=== PATIENT | male | born 1990 | race Caucasian/White ===

== ENCOUNTER 2017-12-16 05:37 | Emergency (ER) | payer BC, OTHER ==
[2017-12-16 05:47] VITALS: TEMP 96.4
[2017-12-16] MEDS ORDERED: IBUPROFEN 600 MG TAB PO STA (07:06)
--- NOTE | 2017-12-16 07:14 | ED ---
Fall HPI - General Source: patient Mode of arrival: EMS - History of Present Illness MD Complaint: fall Onset/Timin -: hour(s) Fall From: down stairs (#) (5) When Fall Occurred: 1 hour [employer] Fall Witnessed: no Place Fall Occurred: other (Outdoor) Loss of Consciousness: unsure Prolonged Down Time?: no Location: head Severity: moderate Quality: aching Context: tripped/slipped Associated Symptoms: headache, neck pain <Jayro Guthrie - Last Filed: 12/16/17 07:29> <Javan Bowman - Last Filed: 12/16/17 08:22> - General Chief Complaint: Fall Stated Complaint: Fall, poss concussion Time Seen by Provider: 12/16/17 05:57 - Related Data Allergies Allergy/AdvReac Type Severity Reaction Status Date / Time No Known Allergies Allergy Verified 12/16/17 05:47 Review of Systems ROS Other: All systems not noted in ROS Statement are negative. Constitutional: Denies: fever, chills, weakness Eyes: Denies: vision change Respiratory: Denies: cough, dyspnea Cardiovascular: Denies: chest pain, palpitations Gastrointestinal: Denies: abdominal pain, nausea, vomiting Musculoskeletal: Denies: back pain Skin: Denies: rash Neurological: Reports: headache. Denies: weakness, numbness, paresthesias <ClevelandJayro - Last Filed: 12/16/17 07:29> ROS Other: All systems not noted in ROS Statement are negative. <Javan Bowman - Last Filed: 12/16/17 08:22> ROS Statement: Those systems with pertinent positive or pertinent negative responses have been documented in the HPI. Past Medical History Past Medical History: No Reported History History of Any Multi-Drug Resistant Organisms: MRSA Date of last positivie culture/infection: 2009 Additional Past Surgical History / Comment(s): bladder surgery Past Psychological History: ADD/ADHD, Anxiety Smoking Status: Light tobacco smoker Past Alcohol Use History: Rare Past Drug Use History: None Reported <Jayro Guthrie - Last Filed: 12/16/17 07:29> General Exam Limitations: no limitations General appearance: alert, in no apparent distress Head exam: Present: atraumatic, normocephalic, normal inspection Eye exam: Present: normal appearance, PERRL, EOMI. Absent: scleral icterus, conjunctival injection ENT exam: Present: normal oropharynx Neck exam: Present: normal inspection. Absent: tenderness, full ROM (Cervical collar) Respiratory exam: Present: normal lung sounds bilaterally. Absent: respiratory distress, wheezes, rales, rhonchi, stridor Cardiovascular Exam: Present: regular rate, normal rhythm, normal heart sounds GI/Abdominal exam: Present: soft. Absent: distended, tenderness, guarding, rebound Extremities exam: Present: normal inspection, normal capillary refill. Absent: pedal edema, calf tenderness Back exam: Present: normal inspection. Absent: CVA tenderness (R), CVA tenderness (L), vertebral tenderness Neurological exam: Present: alert, oriented X3, CN II-XII intact Skin exam: Present: warm, dry, intact, normal color <Jayro Guthrie - Last Filed: 12/16/17 07:29> Vital Signs 12/16/17 05:43 Temperature 96.4 F L Pulse Rate 60 Respiratory 17 Rate Blood Pressure 104/77 O2 Sat by Pulse 97 Oximetry Medical Decision Making <Jayro Guthrie - Last Filed: 12/16/17 07:29> - Radiology Data Radiology results: report reviewed, image reviewed (I did review the imaging and report no acute findings.) <Javan Bowman - Last Filed: 12/16/17 08:22> - Medical Decision Making Patient was endorsed me at shift change by Dr. Guthrie. This is pending CAT scan results. CT of the head neck are negative for acute findings. Patient be discharged with head injury instructions he is follow-up with his doctor and return when necessary (Javan Bowman) Disposition <Jayro Guthrie - Last Filed: 12/16/17 07:29> Is patient prescribed a controlled substance at d/c from ED?: No <Javan Bowman - Last Filed: 12/16/17 08:22> Clinical Impression: Fall, Head injury Disposition: HOME SELF-CARE Condition: Good Instructions: Head Injury (ED) Referrals: Sam Quiles MD [Primary Care Provider] - 1-2 days
--- NOTE | 2017-12-16 08:17 | CT ---
EXAM: CT Head Without Intravenous Contrast CLINICAL HISTORY: Fall, possible concussion TECHNIQUE: Axial computed tomography images of the head/brain without intravenous contrast. CTDI is 59.43 mGy and DLP is 1135.10 mGy-cm. This CT exam was performed using one or more of the following dose reduction techniques: automated exposure control, adjustment of the mA and/or kV according to patient size, and/or use of iterative reconstruction technique. COMPARISON: No previous examination available. FINDINGS: Brain: Unremarkable. No hemorrhage. No significant white matter disease. No edema. Ventricles: Unremarkable. No ventriculomegaly. Bones/joints: Unremarkable. No acute fracture. Soft tissues: Unremarkable. Sinuses: Unremarkable as visualized. No acute sinusitis. Mastoid air cells: Unremarkable as visualized. No mastoid effusion. IMPRESSION: No acute intracranial process identified. EXAM: CT Cervical Spine Without Intravenous Contrast CLINICAL HISTORY: Fall, possible concussion TECHNIQUE: Axial computed tomography images of the cervical spine without intravenous contrast. CTDI is 13.94 mGy and DLP is 272.59 mGy-cm. This CT exam was performed using one or more of the following dose reduction techniques: automated exposure control, adjustment of the mA and/or kV according to patient size, and/or use of iterative reconstruction technique. COMPARISON: No previous examination available. FINDINGS: Vertebrae: Unremarkable. No acute fracture. Discs/spinal canal/neural foramina: No acute findings. No spinal canal stenosis. Soft tissues: Unremarkable. Lung apices: Unremarkable as visualized. IMPRESSION: No acute traumatic injury or significant abnormal alignment involving the cervical spine.
[2017-12-16 08:32] VITALS: BP 111/60; PULSE 72; RESP 16
== END 2017-12-16 08:28 | disposition home or self-care (01) ==
LOC: EC 05:37
DX: S09.90XA Unspecified injury of head, initial encounter (principal); M54.2 Cervicalgia; F17.200 Nicotine dependence, unspecified, uncomplicated; Z86.14 Personal history of Methicillin resistant Staphylococcus aureus infection; W10.9XXA Fall (on) (from) unspecified stairs and steps, initial encounter; Y92.89 Other specified places as the place of occurrence of the external cause
CPT/HCPCS: 70450; 72125; 99284

== ENCOUNTER 2018-02-09 04:52 | Emergency (ER) | payer OTHER ==
[2018-02-09 04:59] VITALS: RESP 18
[2018-02-09] MEDS ORDERED: DIPH,PERTUS(ACELL)TETVAC-LF 0.5 ML VIAL IM ONE (05:04)
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
[2018-02-09 05:15] LABS: Glucose,Whole Blood 82 mg/dL (75-99)
[2018-02-09 05:25] LABS: HCT 46.6 % (39.0-53.0); HGB 15.1 gm/dL (13.0-17.5); MCHC 32.3 g/dL (31.0-37.0); MCV 102.1 fL (80.0-100.0); Macrocytosis Slight; Mean Platelet Volume 6.5; Platelet Count 246 k/uL (150-450); RBC 4.57 m/uL (4.30-5.90); RDW 12.6 % (11.5-15.5); WBC 6.8 k/uL (3.8-10.6)
[2018-02-09 05:26] VITALS: BP 139/93; PULSE 81; TEMP 98.5
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
[2018-02-09 05:39] LABS: Prothrombin Time 9.9 sec (9.0-12.0)
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
[2018-02-09 05:46] LABS: ALT 38 U/L (21-72); AST 39 U/L (17-59); Albumin 3.7 g/dL (3.5-5.0); Alcohol <10 mg/dL; Alkaline Phosphatase 36 U/L (38-126); Amylase 66 U/L (30-110); Anion Gap 5 mmol/L; Blood Urea Nitrogen 14 mg/dL (9-20); Calcium 8.8 mg/dL (8.4-10.2); Carbon Dioxide 30 mmol/L (22-30); Chloride 105 mmol/L (98-107); Glucose 70 mg/dL (74-99); Lipase 270 U/L (23-300); Potassium 3.8 mmol/L (3.5-5.1); Sodium 140 mmol/L (137-145); Total Bilirubin 0.3 mg/dL (0.2-1.3); Total Protein 5.6 g/dL (6.3-8.2)
[2018-02-09 05:48] LABS: Creatine Kinase 403 U/L (55-170)
[2018-02-09 05:52] LABS: Lymphocytes # (M) 4.28 k/uL (1.0-4.8); Monocytes # (M) 0.61 k/uL (0-1.0); Neutrophils % (M) 25 %; Nucleated Red Blood Cells 0 /100 WBC (0-0); Total Cells Counted 100
[2018-02-09 06:01] LABS: Troponin I <0.012 ng/mL (0.000-0.034)
[2018-02-09] MEDS ORDERED: KETOROLAC 30 MG/ML 1 ML VIAL IVP STA (06:04)
[2018-02-09 06:12] LABS: Creatine Kinase MB 2.5 ng/mL (0.0-2.4)
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
--- NOTE | 2018-02-09 07:22 | XR ---
EXAM: XR Left Knee, 3 views CLINICAL HISTORY: Reason: Pain TECHNIQUE: Three views of the left knee. COMPARISON: No relevant prior studies available. FINDINGS: Bones/joints: No evidence of fracture or dislocation. Soft tissues: No knee joint effusion. IMPRESSION: No acute bone or joint abnormalities.
--- NOTE | 2018-02-09 07:27 | XR ---
EXAM: XR Right Elbow Complete, 3 or More Views CLINICAL HISTORY: Reason: Pain TECHNIQUE: Frontal, lateral and oblique views of the right elbow. COMPARISON: No relevant prior studies available. FINDINGS: Bones/joints: No evidence of fracture or dislocation. Soft tissues: Humeral fat pads are not elevated. Punctate radiodensity projecting along medial aspect of elbow may be related to overlying artifact or possible small soft tissue foreign body. IMPRESSION: No evidence of fracture or dislocation. Punctate radiodensity along medial elbow soft tissues as discussed in body of report.
[2018-02-09 08:33] LABS: Appearance,Urine Clear (Clear); Bilirubin,Urine Negative (Negative); Blood,Urine Negative (Negative); Color,Urine Light Yellow; Glucose,Urine (UA) Negative (Negative); Ketones,Urine Negative (Negative); Leukocyte Esterase,Urine Negative (Negative); Nitrite,Urine Negative (Negative); PH, Urine 5.5 (5.0-8.0); Protein,Urine Negative (Negative); Specific Gravity,Urine 1.025 (1.001-1.035); Urobilinogen,Urine <2.0 mg/dL (<2.0)
[2018-02-09 08:43] LABS: Amphetamine Screen,Urine Not Detected (NotDetected); Barbiturate Screen,Urine Not Detected (NotDetected); Benzodiazepines Screen,Urine Not Detected (NotDetected); Cocaine Screen,Urine Not Detected (NotDetected); Methadone Screen, Urine Not Detected (NotDetected); Opiate Screen,Urine Not Detected (NotDetected); Oxycodone Screen, Urine Not Detected (NotDetected); Phencyclidine Screen,Urine Not Detected (NotDetected); Tricyclic Antidepressant,Urine Not Detected (NotDetected); Urn Cannabinoid Scrn Not Detected (NotDetected)
== END 2018-02-09 08:30 | disposition home or self-care (01) ==
LOC: EC 04:52
DX: S80.02XA Contusion of left knee, initial encounter (principal); S50.311A Abrasion of right elbow, initial encounter; F17.200 Nicotine dependence, unspecified, uncomplicated; Z53.29 Procedure and treatment not carried out because of patient's decision for other reasons; Z86.14 Personal history of Methicillin resistant Staphylococcus aureus infection; V23.4XXA Motorcycle driver injured in collision with car, pick-up truck or van in traffic accident, initial encounter; Y93.55 Activity, bike riding; Y92.410 Unspecified street and highway as the place of occurrence of the external cause
CPT/HCPCS: 36415; 93005; 86900; 86901; 80053; 82150; 82550; 82553; 83605; 83690; 84484; 85025; 85610; 85730; 86850; 81003; 80306; 80320; 72170; 73080; 73562; 71045; 72125; 70450; 71260; 74177; 99285; 96374; J1885; Q9967

== ENCOUNTER 2018-02-11 22:41 | Emergency (ER) | payer OTHER ==
[2018-02-11] MEDS ORDERED: IBUPROFEN 600 MG TAB PO STA (23:59)
[2018-02-12] MEDS ORDERED: CYCLOBENZAPRINE 10 MG TAB PO STA (00:06)
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
[2018-02-12 01:01] VITALS: BP 110/76; PULSE 92; RESP 18; TEMP 97.1
== END 2018-02-12 01:02 | disposition home or self-care (01) ==
LOC: EC 22:41
DX: S16.1XXA Strain of muscle, fascia and tendon at neck level, initial encounter (principal); S39.012A Strain of muscle, fascia and tendon of lower back, initial encounter; F17.200 Nicotine dependence, unspecified, uncomplicated; Z86.14 Personal history of Methicillin resistant Staphylococcus aureus infection; V28.4XXA Motorcycle driver injured in noncollision transport accident in traffic accident, initial encounter; Y92.410 Unspecified street and highway as the place of occurrence of the external cause; Y93.55 Activity, bike riding
CPT/HCPCS: 99283

== ENCOUNTER 2018-02-14 01:48 | Emergency (ER) | payer BC, OTHER ==
[2018-02-14 02:00] VITALS: BP 115/73; PULSE 115; RESP 16; TEMP 98.4
[2018-02-14 03:51] LABS: Amphetamine Screen,Urine Detected (NotDetected); Barbiturate Screen,Urine Not Detected (NotDetected); Benzodiazepines Screen,Urine Detected (NotDetected); Cocaine Screen,Urine Not Detected (NotDetected); Methadone Screen, Urine Not Detected (NotDetected); Opiate Screen,Urine Detected (NotDetected); Oxycodone Screen, Urine Not Detected (NotDetected); Phencyclidine Screen,Urine Not Detected (NotDetected); Tricyclic Antidepressant,Urine Not Detected (NotDetected); Urn Cannabinoid Scrn Not Detected (NotDetected)
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
== END 2018-02-14 03:08 | disposition home or self-care (01) ==
LOC: EC 01:48
DX: R82.99 Other abnormal findings in urine (principal); R55 Syncope and collapse; M54.9 Dorsalgia, unspecified; F17.200 Nicotine dependence, unspecified, uncomplicated; Z86.14 Personal history of Methicillin resistant Staphylococcus aureus infection
CPT/HCPCS: 80306; 99284

== ENCOUNTER 2018-02-15 17:20 | Emergency (ER) | payer OTHER ==
[2018-02-15 17:54] VITALS: BP 103/66; PULSE 111; RESP 16; TEMP 98.6
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
== END 2018-02-15 18:11 | disposition home or self-care (01) ==
LOC: EC 17:20
DX: F41.9 Anxiety disorder, unspecified (principal); F90.9 Attention-deficit hyperactivity disorder, unspecified type; F17.200 Nicotine dependence, unspecified, uncomplicated; Z86.14 Personal history of Methicillin resistant Staphylococcus aureus infection; Z98.890 Other specified postprocedural states
CPT/HCPCS: 99282

== ENCOUNTER → 2023-09-19 | Outpatient (CLI) | payer BC ==
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
== END | disposition home or self-care (01) ==
LOC: RADCTMAIN 07:50
PROVIDERS: ATTEND Urology
DX: N20.1 Calculus of ureter (principal)
CPT/HCPCS: 74178; 74400; Q9967

== ENCOUNTER → 2024-02-14 | Outpatient (CLI) | payer BC ==
--- NOTE | 2024-02-14 14:36 | MR ---
EXAMINATION TYPE: MR brain wo/w con DATE OF EXAM: 02/14/2024 2:27 PM CLINICAL INDICATION: Male, 33 years old with history of R20.2 Paresthesis; PHH, checking for MS, blur red vision, right arm weakness, urinary retention COMPARISON: 02/09/2018 TECHNIQUE: Multi planar, multi sequence imaging was performed through the brain including: T1, T2, In version recovery, susceptibility weighted imaging and gradient echo imaging and Diffusion weighted im aging. The patient was then given intravenous contrast and multi planar, T1 fat-saturation images wer e obtained. IV Contrast: 6 cc Gadavist FINDINGS: Patient has a cavum septum pellucidum et vergae. There is a pineal gland high inversion rec overy signal cysts which is high T2 low T1 signal measuring up to 10 mm. No abnormal white matter minda nges visualized. The thompson-white junctions, ventricular system, basal cisterns appear unremarkable. Diffusion-weighted imaging shows no evidence of restricted diffusion to suggest acute/subacute infarct. Intracranial ar terial flow voids are maintained. Midline structures show no abnormality. The susceptibility weighted images do not reveal any evidence for micro-hemorrhage. After administration of gadolinium, no abnor mal enhancement is seen. The bone marrow signal is within normal limits. Paranasal sinuses and mastoid air cells: No significant paranasal sinus disease. Visualized orbits: Orbital contents are intact. IMPRESSION: 1. No evidence for active demyelination. No restricted diffusion or abnormal enhancement. No white m atter changes are visualized. 2. No evidence of acute/subacute infarct, or abnormal enhancement. 3. Pineal gland cyst.
== END | disposition home or self-care (01) ==
LOC: RADMRIMAIN 13:14
PROVIDERS: ATTEND Psychiatry & Neurology Neurology
DX: R20.2 Paresthesia of skin (principal); N31.9 Neuromuscular dysfunction of bladder, unspecified; H53.8 Other visual disturbances; R29.898 Other symptoms and signs involving the musculoskeletal system; R53.1 Weakness
CPT/HCPCS: 70553; A9585

== ENCOUNTER → 2024-03-27 | Outpatient (CLI) | payer BC ==
--- NOTE | 2024-03-27 13:38 | MR ---
EXAMINATION TYPE: MR lumbar spine wo/w con DATE OF EXAM: 03/27/2024 COMPARISON: None HISTORY: Urinary retention x8 months, paresthesia, bladder dysfunction TECHNIQUE: Multiplanar, multisequence images of the lumbar spine were acquired without and with 5 mL intravenous Gadavist gadolinium contrast. Findings: The lumbar vertebral segments are normal in height and alignment. There is no fracture or subluxation . There is mild loss of signal intensity and circumferential disc bulge at the L4-5 and L5-S1 disc in dicating mild degenerative disease. There is a possible small annular tear in the posterior annulus a t the L4-5 level the L1-2, L2-3 and L3-4 discs are well-preserved in both height and signal intensity . There is a moderate broad-based disc protrusion of the L5-S1 disc with no mass effect on the ventral aspect of thecal sac. At the L4-5 level, there is moderate thickening of ligamentum flavum and in combination with circumfe rential disc bulge there is a minimal spinal stenosis. Secondary to disc bulge, there is mild neuroforaminal stenosis at the L5-S1 level on the right. The r emaining neuroforamina are widely patent. The visualized sacrum and SI joints are normal. The paraspinal soft tissues are unremarkable. The conus medullaris and cauda equina appear normal. IMPRESSION: 1. Mild degenerative disc disease at the L4-5 and L5-S1 level. 2. Mild broad-based protrusion of the L5-S1 disc centrally. 3. Minimal spinal stenosis at the L4-5 level. 4. Mild neural foraminal stenosis at the L5-S1 level on the right. [facility], , 03/27/2024 1:35 PM
== END | disposition home or self-care (01) ==
LOC: RADMRIMAIN 12:27
PROVIDERS: ATTEND Psychiatry & Neurology Neurology
DX: R20.2 Paresthesia of skin
CPT/HCPCS: 72158